=== PATIENT | male | born 1990 | race African-American/Black ===

== ENCOUNTER 2023-10-03 22:42 | Emergency (ER) | payer OTHER ==
[2023-10-03 23:00] VITALS: PULSE 96
== END 2023-10-03 23:45 | disposition left against medical advice (07) ==
LOC: ER 22:42
DX: R11.2 Nausea with vomiting, unspecified (principal); Z53.21 Procedure and treatment not carried out due to patient leaving prior to being seen by health care provider
CPT/HCPCS: 99281